=== PATIENT | female | born 1935 | race Caucasian/White ===

== ENCOUNTER 2017-08-31 11:27 | Emergency (ER) | payer MEDICARE, OTHER ==
[~2017-08-31] VITALS: Ht 165.1 cm; Wt 61.2 kg
[~2017-08-31 11:27] MED LIST: ? BP MED; AMLO10 PO; ATEN100; ATEN25 PO; Adult Low Dose81 MG; CONEST.625; CONEST.625 PO; CYAN1000I IM; FERR325 PO; FURO40; HECTOROL PO; IBUP400 PO; LEVFLO500 PO; LISI20 PO; METO2.5 PO; METO25ER PO; NAPR500 PO; OMEP20ER PO; POTA10T; POTCHL10ER; Percocet 10-321 EACH; TEMA30; Voltaren100 GM
[2017-08-31 12:06] LABS: BASOPHILS ABSOLUTE AUTO 0.04 K/mm3 (0.00-0.23); BASOPHILS PERCENT AUTO 1 % (0-2); EOSINOPHILS ABSOLUTE AUTO 0.06 K/mm3 (0.00-0.68); EOSINOPHILS PERCENT AUTO 1 % (0-6); Hematocrit 42.3 % (33.0-51.0); Hemoglobin 13.6 g/dL (11.5-16.0); IMMATURE GRAN ABSOLUTE AUTO 0.01 K/mm3 (0.00-0.10); IMMATURE GRAN PERCENT AUTO 0 % (0-1); LYMPHOCYTES ABSOLUTE AUTO 1.13 K/mm3 (0.84-5.20); LYMPHOCYTES PERCENT AUTO 21 % (21-46); MONOCYTES ABSOLUTE AUTO 0.59 K/mm3 (0.16-1.47); MONOCYTES PERCENT AUTO 11 % (4-13); Mean Corpuscular HGB Conc 32.2 g/dL (31.5-36.5); Mean Corpuscular Volume 93 fL (80-100); Mean Platelet Volume 9.6 fL (9.1-12.4); NEUTROPHILS ABSOLUTE AUTO 3.54 K/mm3 (1.96-9.15); NEUTROPHILS PERCENT AUTO 66 % (41-73); Platelet Count 266 K/mm3 (150-400); RDW Coefficient Variation 15.2 % (11.7-14.2); Red Blood Cell Count 4.53 M/mm3 (3.80-5.20); White Blood Cell Count 5.37 K/mm3 (4.00-11.30)
[2017-08-31 12:40] LABS: Albumin, Blood 3.2 g/dL (3.4-5.0); Albumin/Globulin Ratio 0.6 (0.8-1.8); Bilirubin, Total 0.2 mg/dL (0.1-1.0); Bun/Creatinine Ratio 24.1 (12.0-20.0); Calcium, Blood 9.5 mg/dL (8.5-10.1); Creatinine, Blood 1.66 mg/dL (0.40-1.00); Total Protein, Blood 8.2 g/dL (6.4-8.2)
[2017-08-31 14:00] LABS: Appearance, Urine Clear (Clear); Bilirubin, Urine Neg (Neg); Blood, Urine Neg (Neg); Color, Urine Yellow (P-Yellow); Glucose Qualitative, Urine Neg (Neg); Ketones, Urine Neg (Neg); Leukocyte Esterase, Urine Neg (Neg); Nitrite, Urine Neg (Neg); Protein, Urine 2+ (Neg); Specific Gravity, Urine 1.015 (1.003-1.022); Urobilinogen, Urine NORM (Normal)
[2017-08-31 14:14] LABS: Bacteria Rare /hpf; Red Blood Cells, Urine Not Seen /hpf (0-2); Squamous Epithelial Cells Mod /hpf (Few); White Blood Cells, Urine 0-2 /hpf (0-5)
== END 2017-08-31 15:11 | disposition home or self-care (01) ==
LOC: ER 11:27
PROVIDERS: Emergency Medicine
DX: S51.811A Laceration without foreign body of right forearm, initial encounter (principal); G45.9 Transient cerebral ischemic attack, unspecified; S20.219A Contusion of unspecified front wall of thorax, initial encounter; Z88.5 Allergy status to narcotic agent; Z79.899 Other long term (current) drug therapy; Z79.82 Long term (current) use of aspirin; W18.30XA Fall on same level, unspecified, initial encounter
CPT/HCPCS: 36415; 70450; 80053; 81001; 85025; 93005; 93010; 99284; J7030

== ENCOUNTER 2017-11-27 16:14 | Inpatient (IN) | payer MEDICARE, OTHER ==
[~2017-11-27] VITALS: Ht 165.1 cm; Wt 65.2 kg
[2017-11-27 16:49] LABS: BASOPHILS ABSOLUTE AUTO 0.03 K/mm3 (0.00-0.23); BASOPHILS PERCENT AUTO 1 % (0-2); EOSINOPHILS ABSOLUTE AUTO 0.04 K/mm3 (0.00-0.68); EOSINOPHILS PERCENT AUTO 1 % (0-6); Hematocrit 37.3 % (33.0-51.0); Hemoglobin 12.2 g/dL (11.5-16.0); IMMATURE GRAN ABSOLUTE AUTO 0.01 K/mm3 (0.00-0.10); IMMATURE GRAN PERCENT AUTO 0 % (0-1); LYMPHOCYTES ABSOLUTE AUTO 1.16 K/mm3 (0.84-5.20); LYMPHOCYTES PERCENT AUTO 22 % (21-46); MONOCYTES ABSOLUTE AUTO 0.47 K/mm3 (0.16-1.47); MONOCYTES PERCENT AUTO 9 % (4-13); Mean Corpuscular HGB 29.9 pg (26.0-34.0); Mean Corpuscular HGB Conc 32.7 g/dL (31.5-36.5); Mean Corpuscular Volume 91 fL (80-100); Mean Platelet Volume 10.3 fL (9.1-12.4); NEUTROPHILS ABSOLUTE AUTO 3.66 K/mm3 (1.96-9.15); NEUTROPHILS PERCENT AUTO 68 % (41-73); Platelet Count 354 K/mm3 (150-400); RDW Coefficient Variation 16.6 % (11.7-14.2); RDW Standard Deviation 53.3 fL (35.1-46.3); Red Blood Cell Count 4.08 M/mm3 (3.80-5.20); White Blood Cell Count 5.37 K/mm3 (4.00-11.30)
[2017-11-27 17:13] LABS: Albumin, Blood 3.1 g/dL (3.4-5.0); Albumin/Globulin Ratio 0.6 (0.8-1.8); Bilirubin, Total 0.4 mg/dL (0.1-1.0); Bun/Creatinine Ratio 21.8 (12.0-20.0); Calcium, Blood 10.3 mg/dL (8.5-10.1); Creatinine, Blood 1.56 mg/dL (0.40-1.00); Globulin, Blood 4.8 g/dL (2.2-4.0); Potassium, Blood 3.9 mmol/L (3.5-5.5); Total Protein, Blood 7.9 g/dL (6.4-8.2)
[2017-11-27 19:40] LABS: Thyroid Stimulating Hormone 1.95 uIU/mL (0.360-4.800)
[2017-11-28 05:37] LABS: BASOPHILS ABSOLUTE AUTO 0.06 K/mm3 (0.00-0.23); BASOPHILS PERCENT AUTO 1 % (0-2); EOSINOPHILS ABSOLUTE AUTO 0.04 K/mm3 (0.00-0.68); EOSINOPHILS PERCENT AUTO 1 % (0-6); Hematocrit 34.8 % (33.0-51.0); Hemoglobin 11.6 g/dL (11.5-16.0); IMMATURE GRAN ABSOLUTE AUTO 0.02 K/mm3 (0.00-0.10); IMMATURE GRAN PERCENT AUTO 0 % (0-1); LYMPHOCYTES ABSOLUTE AUTO 1.04 K/mm3 (0.84-5.20); LYMPHOCYTES PERCENT AUTO 17 % (21-46); MONOCYTES ABSOLUTE AUTO 0.49 K/mm3 (0.16-1.47); MONOCYTES PERCENT AUTO 8 % (4-13); Mean Corpuscular HGB Conc 33.3 g/dL (31.5-36.5); Mean Corpuscular Volume 90 fL (80-100); Mean Platelet Volume 10.6 fL (9.1-12.4); NEUTROPHILS ABSOLUTE AUTO 4.58 K/mm3 (1.96-9.15); NEUTROPHILS PERCENT AUTO 74 % (41-73); Platelet Count 317 K/mm3 (150-400); RDW Coefficient Variation 16.5 % (11.7-14.2); RDW Standard Deviation 52.1 fL (35.1-46.3); Red Blood Cell Count 3.87 M/mm3 (3.80-5.20); White Blood Cell Count 6.23 K/mm3 (4.00-11.30)
[2017-11-28 06:03] LABS: Alanine Aminotransfer (ALT/SGP 15 U/L (12-78); Albumin, Blood 2.6 g/dL (3.4-5.0); Albumin/Globulin Ratio 0.6 (0.8-1.8); Alk Phos 93 U/L (50-136); Anion Gap 11 mmol/L (6-16); Aspartate Aminotrans (AST/SGOT 11 U/L (12-37); Bilirubin, Total 0.2 mg/dL (0.1-1.0); Blood Urea Nitrogen 33 mg/dL (8-24); Bun/Creatinine Ratio 25.4 (12.0-20.0); CHOL/HDL RATIO 3.4; CO2, Blood 25 mmol/L (21-32); Chloride, Blood 100 mmol/L (98-108); Cholesterol 153 mg/dL (50-200); Globulin, Blood 4.5 g/dL (2.2-4.0); Glomerular Filtration Rate 42 (60-); Glucose, Blood 120 mg/dL (70-99); HDL Cholesterol 45 mg/dL (>39); LDL/HDL RATIO 1.3; Low Density Lipoprotein Chol 57 mg/dL (0-110); Potassium, Blood 3.7 mmol/L (3.5-5.5); Sodium, Blood 136 mmol/L (136-145); Total Protein, Blood 7.1 g/dL (6.4-8.2); Triglycerides 256 mg/dL (30-160); Very Low Density Lipoprot Chol 51 mg/dL (6-32)
[2017-11-28] MEDS ORDERED: ATOR20 PO (16:16)
[2017-11-28] MEDS ORDERED: CLOP75 PO (16:16)
== END 2017-11-28 17:00 | disposition home or self-care (01) | DRG 123 ==
LOC: ER 16:14 → MEDS 18:52
PROVIDERS: Emergency Medicine; Internal Medicine
DX: H53.2 Diplopia (principal); I50.32 Chronic diastolic (congestive) heart failure; I13.0 Hypertensive heart and chronic kidney disease with heart failure and stage 1 through stage 4 chronic kidney disease, or unspecified chronic kidney disease; I50.30 Unspecified diastolic (congestive) heart failure; R42 Dizziness and giddiness; Z86.73 Personal history of transient ischemic attack (TIA), and cerebral infarction without residual deficits; N18.9 Chronic kidney disease, unspecified
CPT/HCPCS: 36415; 70450; 70551; 80053; 80061; 82607; 82746; 84443; 84484; 85025; 93005; 93010; 93880; 94762; 97161; 99285; G8978; G8979; G8980; J1650

== ENCOUNTER → 2018-12-16 | Outpatient (CLI) | payer MEDICARE, OTHER ==
[~2018-12-16] MED LIST changes: +ATOR10 PO; +Amlodipine Besy10 MG PO; +CLON.1 PO; +CLOP75 PO; +Calcitriol0.5 MCG PO; -FERR325 PO; +FERRIC CITRATE210 MG PO; +FERSU300 PO; +FURO40 PO; +Megestrol400 MG/10 PO; +POTA10T PO; +Xalatan2.5 ML BOTHEYES
== END | disposition home or self-care (01) ==
LOC: LAB SHORT 11:31 → LAB 11:31
DX: E55.9 Vitamin D deficiency, unspecified (principal); N18.3 Chronic kidney disease, stage 3 (moderate); D63.1 Anemia in chronic kidney disease; N25.81 Secondary hyperparathyroidism of renal origin; E78.00 Pure hypercholesterolemia, unspecified; R76.9 Abnormal immunological finding in serum, unspecified; R94.5 Abnormal results of liver function studies; R94.6 Abnormal results of thyroid function studies
CPT/HCPCS: 86335

== ENCOUNTER 2019-03-06 13:30 | Emergency (ER) | payer MEDICARE, OTHER ==
[~2019-03-06] VITALS: Ht 165.1 cm; Wt 64.4 kg
[~2019-03-06 13:30] MED LIST changes: -ATOR10 PO; -Amlodipine Besy10 MG PO; -CLON.1 PO; -Calcitriol0.5 MCG PO; -FERRIC CITRATE210 MG PO; -FERSU300 PO; -FURO40 PO; -LISI20 PO; -Megestrol400 MG/10 PO; -POTA10T PO; -Xalatan2.5 ML BOTHEYES
[2019-03-06 14:06] LABS: BASOPHILS ABSOLUTE AUTO 0.03 K/mm3 (0.00-0.23); BASOPHILS PERCENT AUTO 0 % (0-2); EOSINOPHILS ABSOLUTE AUTO 0.04 K/mm3 (0.00-0.68); EOSINOPHILS PERCENT AUTO 1 % (0-6); Hematocrit 39.9 % (33.0-51.0); Hemoglobin 13.2 g/dL (11.5-16.0); IMMATURE GRAN ABSOLUTE AUTO 0.02 K/mm3 (0.00-0.10); IMMATURE GRAN PERCENT AUTO 0 % (0-1); LYMPHOCYTES ABSOLUTE AUTO 1.35 K/mm3 (0.84-5.20); LYMPHOCYTES PERCENT AUTO 18 % (21-46); MONOCYTES ABSOLUTE AUTO 0.61 K/mm3 (0.16-1.47); MONOCYTES PERCENT AUTO 8 % (4-13); Mean Corpuscular HGB 30.6 pg (26.0-34.0); Mean Corpuscular HGB Conc 33.1 g/dL (31.5-36.5); Mean Corpuscular Volume 93 fL (80-100); Mean Platelet Volume 9.9 fL (9.1-12.4); NEUTROPHILS ABSOLUTE AUTO 5.41 K/mm3 (1.96-9.15); NEUTROPHILS PERCENT AUTO 73 % (41-73); Platelet Count 249 K/mm3 (150-400); RDW Coefficient Variation 13.9 % (11.7-14.2); Red Blood Cell Count 4.31 M/mm3 (3.80-5.20); White Blood Cell Count 7.46 K/mm3 (4.00-11.30)
[2019-03-06 14:31] LABS: Albumin, Blood 3.4 g/dL (3.4-5.0); Albumin/Globulin Ratio 0.8 (0.8-1.8); Bilirubin, Total 0.6 mg/dL (0.1-1.0); Calcium, Blood 10.2 mg/dL (8.5-10.1); Creatinine, Blood 1.63 mg/dL (0.40-1.00); Globulin, Blood 4.4 g/dL (2.2-4.0); Potassium, Blood 3.6 mmol/L (3.5-5.5); Total Protein, Blood 7.8 g/dL (6.4-8.2)
[2019-03-06 14:32] LABS: International Normalized Ratio 0.93; Prothrombin Time Results 9.9 Sec (9.7-11.5)
[2019-03-06] MEDS ORDERED: FERSU300 PO (18:29)
[2019-03-06] MEDS ORDERED: LISI20 PO (18:29)
[2019-03-06] MEDS ORDERED: ATOR10 PO (18:30)
[2019-03-06] MEDS ORDERED: ATEN25 PO (18:31)
[2019-03-06] MEDS ORDERED: FURO40 PO (18:32)
[2019-03-06] MEDS ORDERED: POTA10T PO (18:32)
[2019-03-06] MEDS ORDERED: CONEST.625 PO (18:33)
[2019-03-06] MEDS ORDERED: Amlodipine Besy10 MG PO (18:34)
[2019-03-06] MEDS ORDERED: Calcitriol0.5 MCG PO (18:35)
[2019-03-06] MEDS ORDERED: CLON.1 PO (18:36)
[2019-03-06] MEDS ORDERED: FERRIC CITRATE210 MG PO (18:44)
[2019-03-06] MEDS ORDERED: Xalatan2.5 ML BOTHEYES (18:55)
[2019-03-06] MEDS ORDERED: Megestrol400 MG/10 PO (18:55)
== END 2019-03-06 15:23 | disposition home or self-care (01) ==
LOC: ER 13:30
PROVIDERS: Physician Assistant
DX: M25.511 Pain in right shoulder (principal); R51 Headache; R53.1 Weakness; Z86.73 Personal history of transient ischemic attack (TIA), and cerebral infarction without residual deficits; Z79.82 Long term (current) use of aspirin
CPT/HCPCS: 36415; 70450; 73030; 80053; 85025; 85610; 93005; 93010; 99284-25; A9270

== ENCOUNTER 2019-03-06 17:49 | Emergency (ER) | payer MEDICARE, OTHER ==
[~2019-03-06] VITALS: Ht 165.1 cm; Wt 64.4 kg
[2019-03-06] MEDS ORDERED: LISI20 PO (18:29)
[2019-03-06] MEDS ORDERED: FERSU300 PO (18:29)
[2019-03-06] MEDS ORDERED: ATOR10 PO (18:30)
[2019-03-06] MEDS ORDERED: ATEN25 PO (18:31)
[2019-03-06 18:32] LABS: Bun/Creatinine Ratio 15.1 (12.0-20.0); Calcium, Blood 9.7 mg/dL (8.5-10.1); Creatinine, Blood 1.85 mg/dL (0.40-1.00); Potassium, Blood 3.7 mmol/L (3.5-5.5)
[2019-03-06] MEDS ORDERED: POTA10T PO (18:32)
[2019-03-06] MEDS ORDERED: FURO40 PO (18:32)
[2019-03-06] MEDS ORDERED: CONEST.625 PO (18:33)
[2019-03-06] MEDS ORDERED: Amlodipine Besy10 MG PO (18:34)
[2019-03-06 18:35] LABS: BASOPHILS ABSOLUTE AUTO 0.03 K/mm3 (0.00-0.23); BASOPHILS PERCENT AUTO 0 % (0-2); EOSINOPHILS ABSOLUTE AUTO 0.03 K/mm3 (0.00-0.68); EOSINOPHILS PERCENT AUTO 0 % (0-6); Hematocrit 39.7 % (33.0-51.0); Hemoglobin 13.2 g/dL (11.5-16.0); IMMATURE GRAN ABSOLUTE AUTO 0.02 K/mm3 (0.00-0.10); IMMATURE GRAN PERCENT AUTO 0 % (0-1); LYMPHOCYTES ABSOLUTE AUTO 1.41 K/mm3 (0.84-5.20); LYMPHOCYTES PERCENT AUTO 18 % (21-46); MONOCYTES PERCENT AUTO 9 % (4-13); Mean Corpuscular HGB 31.4 pg (26.0-34.0); Mean Corpuscular HGB Conc 33.2 g/dL (31.5-36.5); Mean Corpuscular Volume 94 fL (80-100); Mean Platelet Volume 10.4 fL (9.1-12.4); NEUTROPHILS ABSOLUTE AUTO 5.62 K/mm3 (1.96-9.15); NEUTROPHILS PERCENT AUTO 72 % (41-73); Platelet Count 234 K/mm3 (150-400); RDW Standard Deviation 48.6 fL (35.1-46.3); Red Blood Cell Count 4.21 M/mm3 (3.80-5.20); White Blood Cell Count 7.81 K/mm3 (4.00-11.30)
[2019-03-06] MEDS ORDERED: Calcitriol0.5 MCG PO (18:35)
[2019-03-06] MEDS ORDERED: CLON.1 PO (18:36)
[2019-03-06] MEDS ORDERED: FERRIC CITRATE210 MG PO (18:44)
[2019-03-06 18:52] LABS: International Normalized Ratio 0.93; Prothrombin Time Results 9.9 Sec (9.7-11.5)
[2019-03-06] MEDS ORDERED: Xalatan2.5 ML BOTHEYES (18:55)
[2019-03-06] MEDS ORDERED: Megestrol400 MG/10 PO (18:55)
== END 2019-03-06 20:25 | disposition home or self-care (01) ==
LOC: ER 17:49
PROVIDERS: Emergency Medicine
DX: R55 Syncope and collapse (principal); I10 Essential (primary) hypertension; Z86.73 Personal history of transient ischemic attack (TIA), and cerebral infarction without residual deficits; Z88.5 Allergy status to narcotic agent; Z79.02 Long term (current) use of antithrombotics/antiplatelets; Z79.82 Long term (current) use of aspirin; Z79.899 Other long term (current) drug therapy
CPT/HCPCS: 80048; 85025; 85610; 96360; 96361; 99285-25; J7030

== ENCOUNTER 2019-06-18 15:18 | Inpatient (IN) | payer MEDICARE ==
[~2019-06-18] VITALS: Ht 165.1 cm; Wt 58.8 kg
[~2019-06-18 15:18] MED LIST changes: +Amlodipine Besy10 MG PO; +CLON.1 PO; +Calcitriol0.5 MCG PO; +FERRIC CITRATE210 MG PO; +FURO40 PO; +POTA10T PO; +Xalatan2.5 ML BOTHEYES
[2019-06-18 16:18] LABS: BASOPHILS ABSOLUTE AUTO 0.02 K/mm3 (0.00-0.23); BASOPHILS PERCENT AUTO 0 % (0-2); EOSINOPHILS PERCENT AUTO 0 % (0-6); Hematocrit 36.7 % (33.0-51.0); Hemoglobin 12.6 g/dL (11.5-16.0); IMMATURE GRAN ABSOLUTE AUTO 0.03 K/mm3 (0.00-0.10); IMMATURE GRAN PERCENT AUTO 0 % (0-1); LYMPHOCYTES ABSOLUTE AUTO 1.09 K/mm3 (0.84-5.20); LYMPHOCYTES PERCENT AUTO 15 % (21-46); MONOCYTES ABSOLUTE AUTO 0.49 K/mm3 (0.16-1.47); MONOCYTES PERCENT AUTO 7 % (4-13); Mean Corpuscular HGB 30.7 pg (26.0-34.0); Mean Corpuscular HGB Conc 34.3 g/dL (31.5-36.5); Mean Corpuscular Volume 89 fL (80-100); Mean Platelet Volume 11.2 fL (9.1-12.4); NEUTROPHILS ABSOLUTE AUTO 5.58 K/mm3 (1.96-9.15); NEUTROPHILS PERCENT AUTO 77 % (41-73); Platelet Count 298 K/mm3 (150-400); RDW Coefficient Variation 13.3 % (11.7-14.2); RDW Standard Deviation 43.8 fL (35.1-46.3); Red Blood Cell Count 4.11 M/mm3 (3.80-5.20); White Blood Cell Count 7.21 K/mm3 (4.00-11.30)
[2019-06-18 16:38] LABS: Albumin, Blood 3.5 g/dL (3.4-5.0); Albumin/Globulin Ratio 0.7 (0.8-1.8); Bilirubin, Total 0.3 mg/dL (0.1-1.0); Bun/Creatinine Ratio 21.2 (12.0-20.0); Calcium, Blood 9.9 mg/dL (8.5-10.1); Creatinine, Blood 2.73 mg/dL (0.40-1.00); Globulin, Blood 5.1 g/dL (2.2-4.0); Total Protein, Blood 8.6 g/dL (6.4-8.2)
[2019-06-18 17:05] LABS: Source, Urine Clean Catch
[2019-06-18 17:09] LABS: Bilirubin, Urine Neg (Neg); Blood, Urine 1+ (Neg); Glucose Qualitative, Urine Neg (Neg); Ketones, Urine Neg (Neg); Leukocyte Esterase, Urine 3+ (Neg); Nitrite, Urine Neg (Neg); Protein, Urine 2+ (Neg); Specific Gravity, Urine 1.015 (1.003-1.022); Urobilinogen, Urine NORM (Normal)
[2019-06-18 17:18] LABS: Appearance, Urine Cloudy (Clear); Color, Urine Yellow (P-Yellow); White Blood Cells, Urine TNTC /hpf (0-5)
[2019-06-18 17:19] LABS: Bacteria Many /hpf; Squamous Epithelial Cells Rare /hpf (Few)
[2019-06-18] MEDS ORDERED: FERSU300 PO (18:00)
[2019-06-18] MEDS ORDERED: Megestrol400 MG/10 PO (18:00)
[2019-06-18] MEDS ORDERED: ATOR10 PO (18:00)
[2019-06-18] MEDS ORDERED: LISI20 PO (18:00)
[2019-06-18] MEDS ORDERED: ATEN50 PO (18:00)
--- NOTE | 2019-06-18 18:39 | NUR ---
RECIEVED REPORT FROM ED BY PHONE WAITING FOR PT TO ARRIVE. WILL PASS ON REPORT TO NIGHT RN.
[2019-06-18 19:06] LABS: Magnesium, Blood 2.4 mg/dL (1.6-2.4)
[2019-06-18 19:08] LABS: Thyroid Stimulating Hormone 1.61 uIU/mL (0.360-4.800)
--- NOTE | 2019-06-19 06:13 | NUR ---
SHIFT SUMMARY PT WAS A NEW ADMIT DURING THE NIGHT, ARRIVING ON THE FLOOR AT 1900. SHE IS 84 Y/O, AND WAS ADMITTED FOR ACUTE ON CHRONIC RENAL FAILURE. PT IS A&O X 4, AND A 1PA UP TO [facility] [place] PT HAS HAD MULTIPLE FALLS AT HOME, AND HAS PAIN IN HER R ARM AND SHOULDER WHEN IT IS MOVED OR TOUCHED. SHE DENIED THE NEED FOR PAIN MEDICATION. PT'S BP WAS ELEVATED ON ADMISSION AT 189/100. PT WAS GIVEN HER HOME DOSE OF ATENOLOL WELL A PRN DOSE OF 10 MG IV HYDRALAZINE. PT'S BP CAME DOWN TO 143/74 ON RECHECK. ALL OTHER VITALS STABLE. PT'S TELE MONITOR SHOWED NSR IN THE 80-90S. NO OTHER ACUTE CHANGES IN PT CONDITION NOTED. WILL CONTINUE TO MONITOR AND TREAT PER EMAR UNTIL HAND OFF TO DAY SHIFT RN.
[2019-06-19 08:44] LABS: BASOPHILS ABSOLUTE AUTO 0.04 K/mm3 (0.00-0.23); BASOPHILS PERCENT AUTO 1 % (0-2); EOSINOPHILS ABSOLUTE AUTO 0.02 K/mm3 (0.00-0.68); EOSINOPHILS PERCENT AUTO 0 % (0-6); Hemoglobin 10.2 g/dL (11.5-16.0); IMMATURE GRAN ABSOLUTE AUTO 0.02 K/mm3 (0.00-0.10); IMMATURE GRAN PERCENT AUTO 0 % (0-1); LYMPHOCYTES ABSOLUTE AUTO 1.45 K/mm3 (0.84-5.20); LYMPHOCYTES PERCENT AUTO 26 % (21-46); MONOCYTES ABSOLUTE AUTO 0.46 K/mm3 (0.16-1.47); MONOCYTES PERCENT AUTO 8 % (4-13); Mean Corpuscular HGB 30.7 pg (26.0-34.0); Mean Corpuscular Volume 90 fL (80-100); NEUTROPHILS ABSOLUTE AUTO 3.56 K/mm3 (1.96-9.15); NEUTROPHILS PERCENT AUTO 64 % (41-73); Platelet Count 238 K/mm3 (150-400); RDW Coefficient Variation 13.3 % (11.7-14.2); RDW Standard Deviation 43.8 fL (35.1-46.3); Red Blood Cell Count 3.32 M/mm3 (3.80-5.20); White Blood Cell Count 5.55 K/mm3 (4.00-11.30)
[2019-06-19 09:02] LABS: Bun/Creatinine Ratio 22.2 (12.0-20.0); Calcium, Blood 8.7 mg/dL (8.5-10.1); Creatinine, Blood 2.12 mg/dL (0.40-1.00); Potassium, Blood 2.9 mmol/L (3.5-5.5)
--- NOTE | 2019-06-19 17:18 | NUR ---
Shift Summary A/Ox3. Pleasant and cooperative. Pt is positive for orthostasis. Postvoid scan reveals 176 cc, pt has been continent frequently t/o day. No other concerns at this time.
--- NOTE | 2019-06-20 04:05 | NUR ---
SHIFT SUMMARY PT HAS RESTED FOR MOST OF THE NIGHT A/O TO SELF AND HOSPITAL. WAS UNABLE TO TELL ME THE YEAR OR WHO THE PRESIDENT WAS. POSTIVE ORTHOSTATICS THIS SHIFT. DIASTOLIC NUMBER DROPPED BY 17 MM HG. THERE WAS NOT A SIGNIFICANT CHANGE IN SYSTOLIC PRESSURE. PT DENIES NEEDS FOR MOST OF THE NIGHT. SHE CAN BE FORGETFUL AND WILL CLIMB OUT OF BED TO ATTEMPT TO GO TO THE BATHROOM AND AT OTHER TIMES SHE WILL CALL FOR HELP. BED ALARM IN PLACE FOR SAFETY. ASSESSMENT UNCHANGED. IVF INFUSING ORDERED. WILL CONTINUE TO MONITOR AND REPORT TO ONCOMING RN.
[2019-06-20 04:57] LABS: BASOPHILS ABSOLUTE AUTO 0.03 K/mm3 (0.00-0.23); BASOPHILS PERCENT AUTO 0 % (0-2); EOSINOPHILS ABSOLUTE AUTO 0.03 K/mm3 (0.00-0.68); EOSINOPHILS PERCENT AUTO 0 % (0-6); Hematocrit 27.1 % (33.0-51.0); Hemoglobin 8.9 g/dL (11.5-16.0); IMMATURE GRAN ABSOLUTE AUTO 0.03 K/mm3 (0.00-0.10); IMMATURE GRAN PERCENT AUTO 0 % (0-1); LYMPHOCYTES ABSOLUTE AUTO 1.66 K/mm3 (0.84-5.20); LYMPHOCYTES PERCENT AUTO 24 % (21-46); MONOCYTES ABSOLUTE AUTO 0.46 K/mm3 (0.16-1.47); MONOCYTES PERCENT AUTO 7 % (4-13); Mean Corpuscular HGB 29.8 pg (26.0-34.0); Mean Corpuscular HGB Conc 32.8 g/dL (31.5-36.5); Mean Corpuscular Volume 91 fL (80-100); Mean Platelet Volume 11.3 fL (9.1-12.4); NEUTROPHILS PERCENT AUTO 69 % (41-73); Platelet Count 213 K/mm3 (150-400); RDW Coefficient Variation 13.6 % (11.7-14.2); Red Blood Cell Count 2.99 M/mm3 (3.80-5.20); White Blood Cell Count 7.01 K/mm3 (4.00-11.30)
[2019-06-20 05:23] LABS: Bun/Creatinine Ratio 28.1 (12.0-20.0); Calcium, Blood 8.4 mg/dL (8.5-10.1); Creatinine, Blood 1.71 mg/dL (0.40-1.00); Potassium, Blood 3.6 mmol/L (3.5-5.5)
--- NOTE | 2019-06-20 17:55 | NUR ---
Shift Summary A/Ox3, calls appropriately for needs. Ortho vitals improve this morning. Medicated x 1 for BP 162/85 with good results. Voiding appropriately. No acute concerns at this time.
--- NOTE | 2019-06-21 04:13 | NUR ---
SHIFT SUMMARY PT HAS RESTED OFF AND ON THIS SHIFT. SHE HAS BEEN VOIDING WITHOUT DIFFICULTY. SHE HAS CALLED APPROPRIATELY FOR ASSISTANCE MOST TIMES THIS SHIFT. DAUGHTER AT BEDSIDE THIS SHIFT AND IS ATTENTIVE TO PT NEEDS. ORTHO VITALS POSTIVE THIS SHIFT. PT DENIES PAIN, OR SOB. ASSESSMENT HAS REMAINED UNCHANGED. BED IN LOWEST POSITION, CALL LIGHT WITHIN REACH. WILL CONTINUE TO MONITOR AND REPORT TO ONCOMING RN.
[2019-06-21 05:48] LABS: BASOPHILS ABSOLUTE AUTO 0.04 K/mm3 (0.00-0.23); BASOPHILS PERCENT AUTO 1 % (0-2); EOSINOPHILS ABSOLUTE AUTO 0.03 K/mm3 (0.00-0.68); EOSINOPHILS PERCENT AUTO 0 % (0-6); Hematocrit 27.4 % (33.0-51.0); Hemoglobin 9.1 g/dL (11.5-16.0); IMMATURE GRAN ABSOLUTE AUTO 0.07 K/mm3 (0.00-0.10); IMMATURE GRAN PERCENT AUTO 1 % (0-1); LYMPHOCYTES ABSOLUTE AUTO 1.82 K/mm3 (0.84-5.20); LYMPHOCYTES PERCENT AUTO 21 % (21-46); MONOCYTES ABSOLUTE AUTO 0.55 K/mm3 (0.16-1.47); MONOCYTES PERCENT AUTO 6 % (4-13); Mean Corpuscular HGB 29.8 pg (26.0-34.0); Mean Corpuscular HGB Conc 33.2 g/dL (31.5-36.5); Mean Corpuscular Volume 90 fL (80-100); Mean Platelet Volume 11.6 fL (9.1-12.4); NEUTROPHILS ABSOLUTE AUTO 6.18 K/mm3 (1.96-9.15); NEUTROPHILS PERCENT AUTO 71 % (41-73); Platelet Count 232 K/mm3 (150-400); RDW Coefficient Variation 13.8 % (11.7-14.2); RDW Standard Deviation 45.1 fL (35.1-46.3); Red Blood Cell Count 3.05 M/mm3 (3.80-5.20); White Blood Cell Count 8.69 K/mm3 (4.00-11.30)
[2019-06-21 05:55] LABS: Bun/Creatinine Ratio 30.3 (12.0-20.0); Calcium, Blood 8.9 mg/dL (8.5-10.1); Creatinine, Blood 1.55 mg/dL (0.40-1.00); Magnesium, Blood 1.9 mg/dL (1.6-2.4); Potassium, Blood 3.7 mmol/L (3.5-5.5)
[2019-06-21] MEDS ORDERED: Florastor250 MG PO (12:24)
[2019-06-21] MEDS ORDERED: CIPR500 PO (12:25)
--- NOTE | 2019-06-21 15:33 | NUR ---
SHIFT SUMMARY PT RESTING QUIETLY DURING SHIFT REPORT. WOKE EASILY FOR CARE. ADMITTED FOR CHRONIC RENAL FAILURE AND UTI. PT IS A&O, BUT APPEARS WEAK AND DECONDITIONED. SCATTERED SCABS AND BRUISING FROM FALLS AT HOME. PT REPORTED THAT SHE WAS INDEPENDENT PRIOR TO ADMIT, BUT NOW WOULD LIKE TO START USING FWW AT HOME. DR BLANKENSHIP IN TO SEE PT WELL P/T. D/C ORDERS PLACED. SCRIPT GIVEN FOR FWW AT D/C. PT'S DAUGHTER HERE TO ASSIST PT WITH GETTING DRESSED. CM IN TO PROVIDE INFORMATION FOR CARE GIVERS IF NEEDED WHEN PT AT HOME. H/H ORDERED AND SET UP PER PT REQUEST. D/C INFORMATION DISCUSSED WITH PT AND FAMILY; VERBALIZED UNDERSTANDING. PT TAKEN OUT VIA W/C BY STRIPER [employer]AY GUN WITH DAUGHTER TO TAKE HER HOME.
== END 2019-06-21 14:03 | disposition home health service (06) | DRG 683 ==
LOC: ER 15:18 → MEDS 17:44 → ENPENDDIS 06-21 11:12 → MEDS 06-21 14:03
PROVIDERS: Nurse Practitioner Acute Care; Physician Assistant; ADMIT Internal Medicine
DX: N17.9 Acute kidney failure, unspecified (principal); N39.0 Urinary tract infection, site not specified; D84.9 Immunodeficiency, unspecified; N18.3 Chronic kidney disease, stage 3 (moderate); E86.0 Dehydration; R29.6 Repeated falls; I95.1 Orthostatic hypotension; R05 Cough; I12.9 Hypertensive chronic kidney disease with stage 1 through stage 4 chronic kidney disease, or unspecified chronic kidney disease; E87.6 Hypokalemia; D50.9 Iron deficiency anemia, unspecified; Z74.09 Other reduced mobility; F03.90 Unspecified dementia, unspecified severity, without behavioral disturbance, psychotic disturbance, mood disturbance, and anxiety; Z51.5 Encounter for palliative care; Z79.818 Long term (current) use of other agents affecting estrogen receptors and estrogen levels; Z79.899 Other long term (current) drug therapy
CPT/HCPCS: 36415; 51701; 70450; 71045; 73030; 80048; 80053; 81001; 82550; 83735; 84443; 85025; 87077; 87086; 87186; 93005; 93010; 96361-59; 96365-59; 96367-59; 97116; 97162; 97165; 97535; 99285-25; J0360; J0696; J3480; J7030; J7050

== ENCOUNTER 2019-06-26 17:25 | Emergency (ER) | payer MEDICARE ==
[~2019-06-26] VITALS: Ht 165.1 cm; Wt 63.5 kg
[~2019-06-26 17:25] MED LIST changes: +ATEN50 PO; +ATOR10 PO; +CIPR500 PO; +FERSU300 PO; +Florastor250 MG PO; +LISI20 PO; +Megestrol400 MG/10 PO
[2019-06-26 20:04] LABS: BASOPHILS ABSOLUTE AUTO 0.06 K/mm3 (0.00-0.23); BASOPHILS PERCENT AUTO 1 % (0-2); EOSINOPHILS ABSOLUTE AUTO 0.09 K/mm3 (0.00-0.68); EOSINOPHILS PERCENT AUTO 1 % (0-6); Hematocrit 26.1 % (33.0-51.0); Hemoglobin 8.5 g/dL (11.5-16.0); IMMATURE GRAN ABSOLUTE AUTO 0.03 K/mm3 (0.00-0.10); IMMATURE GRAN PERCENT AUTO 0 % (0-1); LYMPHOCYTES ABSOLUTE AUTO 1.34 K/mm3 (0.84-5.20); LYMPHOCYTES PERCENT AUTO 17 % (21-46); MONOCYTES ABSOLUTE AUTO 0.79 K/mm3 (0.16-1.47); MONOCYTES PERCENT AUTO 10 % (4-13); Mean Corpuscular HGB 30.1 pg (26.0-34.0); Mean Corpuscular HGB Conc 32.6 g/dL (31.5-36.5); Mean Corpuscular Volume 93 fL (80-100); Mean Platelet Volume 10.8 fL (9.1-12.4); NEUTROPHILS ABSOLUTE AUTO 5.59 K/mm3 (1.96-9.15); NEUTROPHILS PERCENT AUTO 71 % (41-73); Platelet Count 291 K/mm3 (150-400); RDW Coefficient Variation 13.8 % (11.7-14.2); Red Blood Cell Count 2.82 M/mm3 (3.80-5.20)
[2019-06-26 20:18] LABS: Bun/Creatinine Ratio 18.1 (12.0-20.0); Calcium, Blood 8.9 mg/dL (8.5-10.1); Creatinine, Blood 1.6 mg/dL (0.40-1.00); Potassium, Blood 4.5 mmol/L (3.5-5.5)
[2019-06-26] MEDS ORDERED: Tenormin25 MG PO (20:35)
[2019-06-26] MEDS ORDERED: LISI20 PO (20:35)
== END 2019-06-26 21:35 | disposition home or self-care (01) ==
LOC: ER 17:25
PROVIDERS: Emergency Medicine
DX: I12.9 Hypertensive chronic kidney disease with stage 1 through stage 4 chronic kidney disease, or unspecified chronic kidney disease (principal); N18.9 Chronic kidney disease, unspecified; D64.9 Anemia, unspecified; Z76.0 Encounter for issue of repeat prescription; Z86.73 Personal history of transient ischemic attack (TIA), and cerebral infarction without residual deficits; Z79.899 Other long term (current) drug therapy
CPT/HCPCS: 80048; 85025; 99283

== ENCOUNTER 2019-07-17 13:49 | Emergency (ER) | payer MEDICARE ==
[~2019-07-17] VITALS: Ht 165.1 cm; Wt 66.2 kg
[~2019-07-17 13:49] MED LIST changes: +Tenormin25 MG PO
[2019-07-17 14:24] LABS: BASOPHILS ABSOLUTE AUTO 0.06 K/mm3 (0.00-0.23); BASOPHILS PERCENT AUTO 1 % (0-2); EOSINOPHILS ABSOLUTE AUTO 0.02 K/mm3 (0.00-0.68); EOSINOPHILS PERCENT AUTO 0 % (0-6); Hematocrit 33.9 % (33.0-51.0); Hemoglobin 10.6 g/dL (11.5-16.0); IMMATURE GRAN ABSOLUTE AUTO 0.11 K/mm3 (0.00-0.10); IMMATURE GRAN PERCENT AUTO 1 % (0-1); LYMPHOCYTES ABSOLUTE AUTO 1.49 K/mm3 (0.84-5.20); LYMPHOCYTES PERCENT AUTO 15 % (21-46); MONOCYTES ABSOLUTE AUTO 0.94 K/mm3 (0.16-1.47); MONOCYTES PERCENT AUTO 9 % (4-13); Mean Corpuscular HGB 30.8 pg (26.0-34.0); Mean Corpuscular HGB Conc 31.3 g/dL (31.5-36.5); Mean Corpuscular Volume 99 fL (80-100); Mean Platelet Volume 11.3 fL (9.1-12.4); NEUTROPHILS ABSOLUTE AUTO 7.47 K/mm3 (1.96-9.15); NEUTROPHILS PERCENT AUTO 74 % (41-73); NRBC ABSOLUTE 0.02 K/mm3 (0.00-0.02); NRBC Auto 0.2 /100 WBC (0.0-0.2); Platelet Count 294 K/mm3 (150-400); RDW Coefficient Variation 17.2 % (11.7-14.2); Red Blood Cell Count 3.44 M/mm3 (3.80-5.20); White Blood Cell Count 10.09 K/mm3 (4.00-11.30)
[2019-07-17 14:45] LABS: Alanine Aminotransfer (ALT/SGP 31 U/L (12-78); Albumin, Blood 3.3 g/dL (3.4-5.0); Albumin/Globulin Ratio 0.9 (0.8-1.8); Alk Phos 68 U/L (50-136); Anion Gap 9 mmol/L (6-16); Aspartate Aminotrans (AST/SGOT 11 U/L (12-37); Bilirubin, Total 0.4 mg/dL (0.1-1.0); Blood Urea Nitrogen 37 mg/dL (8-24); CO2, Blood 19 mmol/L (21-32); Calcium, Blood 8.8 mg/dL (8.5-10.1); Chloride, Blood 112 mmol/L (98-108); Creatinine, Blood 1.95 mg/dL (0.40-1.00); Globulin, Blood 3.8 g/dL (2.2-4.0); Glomerular Filtration Rate 26 (60-); Glucose, Blood 120 mg/dL (70-99); Potassium, Blood 3.9 mmol/L (3.5-5.5); Sodium, Blood 140 mmol/L (136-145); Total Protein, Blood 7.1 g/dL (6.4-8.2); Troponin I <0.015 ng/mL (0.000-0.040)
[2019-07-17 16:16] LABS: Source, Urine Clean Catch
[2019-07-17 16:23] LABS: Bilirubin, Urine Neg (Neg); Blood, Urine 1+ (Neg); Glucose Qualitative, Urine Neg (Neg); Ketones, Urine Neg (Neg); Leukocyte Esterase, Urine 1+ (Neg); Nitrite, Urine Neg (Neg); Protein, Urine 3+ (Neg); Specific Gravity, Urine 1.015 (1.003-1.022); Urobilinogen, Urine NORM (Normal)
[2019-07-17 16:34] LABS: Appearance, Urine Clear (Clear); Color, Urine Yellow (P-Yellow)
[2019-07-17 16:37] LABS: Amorphous Light (0-Heavy); Bacteria Few /hpf; Red Blood Cells, Urine 0-2 /hpf (0-2); Squamous Epithelial Cells Few /hpf (Few); White Blood Cells, Urine 0-2 /hpf (0-5)
[2019-07-17 16:38] LABS: Mucus Light (0-Heavy)
[2019-07-17 16:41] LABS: Calcium Oxalate Crystals Few /hpf; Hyaline Casts Rare /lpf (0-2)
== END 2019-07-17 17:59 | disposition home or self-care (01) ==
LOC: ER 13:49
PROVIDERS: Emergency Medicine
DX: S00.83XA Contusion of other part of head, initial encounter (principal); I12.9 Hypertensive chronic kidney disease with stage 1 through stage 4 chronic kidney disease, or unspecified chronic kidney disease; N18.9 Chronic kidney disease, unspecified; Z79.899 Other long term (current) drug therapy; Z86.73 Personal history of transient ischemic attack (TIA), and cerebral infarction without residual deficits; W18.30XA Fall on same level, unspecified, initial encounter
CPT/HCPCS: 36415; 70450; 71045; 80053; 81001; 84484; 85025; 87077; 87086; 87186; 93005; 93010; 96360; 96361; 99285-25; J7030; P9612

== ENCOUNTER 2019-08-05 15:09 | Emergency (ER) | payer MEDICARE ==
[~2019-08-05] VITALS: Ht 165.1 cm; Wt 66.3 kg
[2019-08-05] MEDS ORDERED: Aspirin EC81 MG PO (15:14)
[2019-08-05] MEDS ORDERED: AMLO5 PO (15:15)
[2019-08-05 15:49] LABS: BASOPHILS ABSOLUTE AUTO 0.04 K/mm3 (0.00-0.23); BASOPHILS PERCENT AUTO 1 % (0-2); EOSINOPHILS PERCENT AUTO 2 % (0-6); Hematocrit 35.7 % (33.0-51.0); Hemoglobin 11.3 g/dL (11.5-16.0); IMMATURE GRAN ABSOLUTE AUTO 0.04 K/mm3 (0.00-0.10); IMMATURE GRAN PERCENT AUTO 1 % (0-1); LYMPHOCYTES ABSOLUTE AUTO 1.35 K/mm3 (0.84-5.20); LYMPHOCYTES PERCENT AUTO 20 % (21-46); MONOCYTES ABSOLUTE AUTO 0.66 K/mm3 (0.16-1.47); MONOCYTES PERCENT AUTO 10 % (4-13); Mean Corpuscular HGB 31.9 pg (26.0-34.0); Mean Corpuscular HGB Conc 31.7 g/dL (31.5-36.5); Mean Corpuscular Volume 101 fL (80-100); Mean Platelet Volume 10.5 fL (9.1-12.4); NEUTROPHILS ABSOLUTE AUTO 4.62 K/mm3 (1.96-9.15); NEUTROPHILS PERCENT AUTO 68 % (41-73); Platelet Count 373 K/mm3 (150-400); RDW Coefficient Variation 18.3 % (11.7-14.2); RDW Standard Deviation 62.6 fL (35.1-46.3); Red Blood Cell Count 3.54 M/mm3 (3.80-5.20); White Blood Cell Count 6.81 K/mm3 (4.00-11.30)
[2019-08-05 16:02] LABS: International Normalized Ratio 0.94; Prothrombin Time Results 10.1 Sec (9.7-11.5)
[2019-08-05 16:14] LABS: Albumin, Blood 3.3 g/dL (3.4-5.0); Albumin/Globulin Ratio 0.8 (0.8-1.8); Bilirubin, Total 0.3 mg/dL (0.1-1.0); Bun/Creatinine Ratio 17.1 (12.0-20.0); Calcium, Blood 8.8 mg/dL (8.5-10.1); Creatinine, Blood 1.81 mg/dL (0.40-1.00); Potassium, Blood 4.4 mmol/L (3.5-5.5); Total Protein, Blood 7.3 g/dL (6.4-8.2)
== END 2019-08-05 17:41 | disposition short-term general hospital (02) ==
LOC: ER 15:09
PROVIDERS: Emergency Medicine
DX: I63.9 Cerebral infarction, unspecified (principal); Z79.82 Long term (current) use of aspirin; Z79.899 Other long term (current) drug therapy
CPT/HCPCS: 37195; 70450; 70496; 70498; 80053; 85025; 85610; 93005; 93010; 96365-59; 96375-59; 99285-25; J2997; J7050; Q9967